=== PATIENT | female | born 1995 | race Caucasian/White ===

== ENCOUNTER 2016-10-03 18:29 | Emergency (ER) | payer OTHER ==
[~2016-10-03] VITALS: Ht 170.2 cm; Wt 75.0 kg
[2016-10-03] MEDS ORDERED: SODIUM CHLORIDE FLUSH 10ML SYR IVF ONE (19:00)
[2016-10-03] MEDS ORDERED: SODIUM CHLORIDE 0.9% 1,000ML IVBOLUS ONE (19:00)
[2016-10-03] MEDS ORDERED: PLEASE ENTER HEIGHT AND WEIGHT MC SCH (19:00)
[2016-10-03] MEDS ORDERED: PLEASE ENTER ALLERGIES MC SCH ×2 (19:00)
[2016-10-03 19:11] LABS: BLOOD UREA NITROGEN 10 mg/dL (7-18)
[2016-10-03 19:17] LABS: ASPARTATE AMINO TRANSFERASE 12 U/L (15-37)
[2016-10-03 19:18] LABS: IS PT STATUS REG ER OR PRE ER? YES
[2016-10-03 21:00] VITALS: BP 112/67
== END 2016-10-03 21:04 | disposition home or self-care (01) ==
LOC: ED 20:40
DX: R55 Syncope and collapse (principal); R11.0 Nausea
CPT/HCPCS: 36415; 71010; 80053; 83880; 84484; 84703; 85025; 93005; 99285